=== PATIENT | female | born 1980 | race Caucasian/White ===

== ENCOUNTER → 2021-06-27 16:55 | Outpatient (CLI) | payer BC, SELFPAY ==
--- NOTE | ~2021-06-27 | MM_ITS ---
EXAMINATION: MM scrn fahad implant BI w garrick HISTORY: Screening mammogram TECHNIQUE: Craniocaudal and mediolateral oblique 3-D tomosynthesis images with implant displacement a nd synthetic 2-D images were generated. Craniocaudal and mediolateral oblique views of the breasts wi thout implant displacement were obtained using full field digital mammography. CAD analysis was submi tted and interpreted. COMPARISON: No prior mammogram is available for comparison at this institution. BREAST PARENCHYMAL COMPOSITION: The breasts are heterogenously dense, which may obscure small masses. FINDINGS: There is no evidence of suspicious mass, calcification, or architectural distortion to sugg est malignancy in either breast. There has been no suspicious interval change. IMPRESSION: 1. No mammographic evidence of malignancy. 2. Recommend routine screening mammography in one year. BI-RADS Category 1: Negative Reviewed, dictated and finalized at location A.
== END ==
PROVIDERS: Visit Provider Obstetrics & Gynecology Gynecology
DX: Z12.31 Encounter for screening mammogram for malignant neoplasm of breast (principal)
CPT/HCPCS: 77063; 77067

== ENCOUNTER 2021-10-28 11:18 | Emergency (ER) | payer BC, SELFPAY ==
[2021-10-28 11:25] VITALS: BP 115/59; PULSE 67; RESP 16; TEMP 36.8; O2SAT 99
--- NOTE | 2021-10-28 11:38 | ED.URI ---
HPI - URI/Sore Throat General Chief Complaint: Upper Respiratory Infection Stated Complaint: carbone/sore throat Time Seen by Provider: 10/28/21 11:36 Source: patient and RN notes reviewed Mode of arrival: ambulatory Limitations: no limitations History of Present Illness HPI Narrative: Shelia is a 41-year-old female patient who ambulated into the [facility] today. Patient has a 5-day history of cough, congestion, and body aches. Patient has taken 3 rapid Covid test at home which all have been negative. Patient states she had a sore throat for 2 days and pressure behind her eyes. Patient states that yesterday she went and had an immune booster infusion that consisted of IV fluids and vitamins. Related Data Allergies Allergy/AdvReac Type Severity Reaction Status Date / Time Sulfa (Sulfonamide Allergy Unknown Nausea Verified 10/28/21 11:24 Antibiotics) Review of Systems Review of Systems: CONSTITUTIONAL: + body aches, denies fever, chills, or sweats. EYES: Denies visual changes, redness, or discharge. ENT: + rhinorrhea,+ congestion,+ sore throat, denies otalgia. CARDIOVASCULAR: Denies chest pain, palpitations, or edema. RESPIRATORY: Denies cough or dyspnea. GASTROINTESTINAL: Denies abdominal pain, nausea, vomiting, or diarrhea. GENITOURINARY: Denies dysuria or hematuria. SKIN: Denies rash, itching, or wounds. MUSCULOSKELETAL: Denies back pain, joint pain, or myalgia. NEUROLOGIC: Denies headache, numbness, tingling, or weakness. PSYCH: Denies depression or anxiety. All systems reviewed & are unremarkable except as noted in HPI and below PMFSH Social History Social History Smoking status: Never smoker Alcohol intake: current Exam Narrative: GENERAL: Well-appearing, well-nourished, and in no acute distress. HEAD: Normocephalic, atraumatic. EYES: EOMI. No redness or drainage. Conjunctivae normal. ENT: Mucous membranes pink and moist. Nasal membranes are erythematous with clear rhinorrhea. Bilateral tympanic membranes are dull with minimal fluid and no erythema. Posterior pharynx is erythemic with minimal edema, no exudate, moderate amount of white postnasal drainage is noted. Uvula midline. NECK: Normal AROM. Supple. No lymphadenopathy. CHEST: No respiratory distress. Clear to auscultation. MUSCULOSKELETAL: No bony tenderness. EXTREMITIES: Normal range of motion. No edema. SKIN: Warm, dry, no rash. Capillary refill normal. Normal skin turgor. NEURO: No focal deficits. Alert and oriented x3. Gait steady. PSYCH: Normal affect. No signs of depression or anxiety. Course Vital Signs Vital signs: Vital Signs Temperature 36.8 C 10/28/21 11:25 Pulse Rate 67 10/28/21 11:25 Respiratory Rate 16 10/28/21 11:25 Blood Pressure 115/59 L 10/28/21 11:25 Pulse Oximetry 99 10/28/21 11:25 Temperature 36.8 C 10/28/21 11:25 Pulse Rate 67 10/28/21 11:25 Respiratory Rate 16 10/28/21 11:25 Blood Pressure 115/59 L 10/28/21 11:25 Pulse Oximetry 99 10/28/21 11:25 Reviewed MDM - URI/Sore Throat MDM Narrative Medical decision making narrative: Patient has had 3 - Covid test at home. Patient has had symptoms for only 5 days. Patient will be treated as an upper respiratory infection and will be treated with Claritin-D 12-hour and prednisone. Patient to follow-up with her primary care physician for continued symptoms in 10 to 14 days. Patient to go to the emergency room for any severe shortness of breath. Patient denies any cough or shortness of breath at this time. Differential Diagnosis Differential diagnosis: Likely upper respiratory infection, otitis media, viral infection and bronchitis Medical Records Attestation: I reviewed the patient's medical records. Critical Care Time Critical Care Time Critical Care Time: No Discharge Plan Discharge Clinical Impression: Upper respiratory infection Qualifiers: URI type: unspecified
== END 2021-10-28 11:44 | disposition home or self-care (01) ==
PROVIDERS: Emergency Provider Nurse Practitioner Family; PCP Physician Assistant
DX: J06.9 Acute upper respiratory infection, unspecified (principal)
CPT/HCPCS: 99213; G0463

== ENCOUNTER → 2022-12-22 15:16 | Outpatient (CLI) | payer BC, SELFPAY ==
--- NOTE | ~2022-12-22 | MM_ITS ---
EXAMINATION: MM scrn fahad implant BI w garrick HISTORY: Screening mammogram TECHNIQUE: Craniocaudal and mediolateral oblique 3-D tomosynthesis images with implant displacement a nd synthetic 2-D images were generated. Craniocaudal and mediolateral oblique views of the breasts wi thout implant displacement were obtained using full field digital mammography. CAD analysis was submi tted and interpreted. COMPARISON: 06/27/2021 BREAST PARENCHYMAL COMPOSITION: The breasts are heterogeneously dense, which may obscure small masses FINDINGS: There are new bilateral breast asymmetries involving the upper and lower aspect of the righ t breast on MLO view in the lateral aspect of the left breast on CC view. There are bilateral subpect oral silicone implants. IMPRESSION: 1. New bilateral breast asymmetries. 2. Additional spot compression and mediolateral views with possible follow-up breast ultrasound recom mended. BI-RADS Category 0: Incomplete: Needs additional imaging evaluation. Reviewed, dictated and finalized at location A. SUPERVISOR IMPRESSION: 1. New bilateral breast asymmetries. 2. Additional spot compression and mediolateral views with possible follow-up b reast ultrasound recommended. BI-RADS Category 0: Incomplete: Needs additional imaging evaluation.
== END ==
PROVIDERS: PCP Obstetrics & Gynecology Gynecology; Visit Provider Obstetrics & Gynecology Gynecology
DX: Z12.31 Encounter for screening mammogram for malignant neoplasm of breast (principal); R92.8 Other abnormal and inconclusive findings on diagnostic imaging of breast
CPT/HCPCS: 77063; 77067

== ENCOUNTER → 2023-01-12 09:01 | Outpatient (CLI) | payer BC, SELFPAY ==
--- NOTE | ~2023-01-12 | MMUS_ITS ---
EXAMINATION: MM diag fahad implant BI w garrick, US breast BI complete HISTORY: New bilateral breast asymmetries reported on 12/22/2022 screening mammogram examination TECHNIQUE: Additional 3-D tomosynthesis images of both breasts were performed and synthetic 2-D image s were generated. CAD analysis was submitted and interpreted. High resolution bilateral complete [facility] [facility] ultrasound examination including all 4 quadrants and subareolar areas was performed. COMPARISON: 12/22/2022, 06/27/2021 bilateral implant screening mammogram examinations FINDINGS: MAMMOGRAPHIC FINDINGS: There is very dense fibroglandular stroma which may obscure masses. Asymmetry is noted in the posteri or central left breast outer left breast, best demonstrated on CC views. Complete bilateral breast ul trasound examination was performed. ULTRASOUND: Right breast: 12:00 3 cm from nipple: 1.7 x 3 x 2.9 mm circumscribed sonolucency without internal vascularity or po sterior shadowing, likely benign 3:00 3 cm from nipple: 1.2 x 2.5 x 3 mm circumscribed sonolucent area without internal vascularity or posterior shadowing, likely benign 9:00 2.5 cm from nipple: Parallel circumscribed hypoechoic 1.7 x 6.5 x 6.2 mm lesion without internal vascularity or posterior shadowing demonstrated near the implant, likely benign Left breast: 12:00 4 cm from nipple: Septated approximately 3 x 6.7 x 5 mm cyst 1:00 6 cm from nipple: Parallel circumscribed 2.6 x 6 x 7.3 mm hypoechoic lesion without internal vas cularity or posterior shadowing, likely benign 1:00 3 cm from nipple: Parallel circumscribed 2.53 mm hypoechoic lesion without internal vascularity or posterior shadowing, likely benign 1:00 5 cm from nipple: Parallel circumscribed 2.8 x 7.7 x 7.9 mm hypoechoic lesion with slightly inte rnal vascularity. No posterior shadowing IMPRESSION: 1. Probably benign findings 2. 6 month follow-up bilateral breast ultrasound examination is recommended to document stability BI-RADS category 3, probably benign findings. Reviewed, dictated and finalized at location A. OF MOBILE IMPRESSION: 1. Probably benign findings 2. 6 month follow-up bilateral breast ultrasound examination is recommended to document stability BI-RADS category 3, probably benign findings.
== END ==
PROVIDERS: PCP Physician Assistant; Visit Provider Obstetrics & Gynecology Gynecology
DX: R92.8 Other abnormal and inconclusive findings on diagnostic imaging of breast (principal)
CPT/HCPCS: 76641; 77062; 77066; G0279

== ENCOUNTER 2023-10-29 09:54 | Outpatient (CLI) | payer BC, SELFPAY | END 2023-10-29 09:55 | disposition home or self-care (01) | LOC: ANHLAB 09:55 | PROVIDERS: PCP Internal Medicine; Visit Provider Internal Medicine | DX: R21 Rash and other nonspecific skin eruption (principal); J34.89 Other specified disorders of nose and nasal sinuses | CPT/HCPCS: 87081 ==